=== PATIENT | female | born 1995 | race Caucasian/White ===

== ENCOUNTER 2024-05-03 05:24 | Inpatient (IN) ==
[2024-05-03] MEDS ORDERED: OXYTOCIN 30 UNITS/NSS 30 UNITS/500 ML BAG IV PRN ×2 (10:12→16:28)
[2024-05-03] MEDS ORDERED: LIDOCAINE 1% LOCAL 20 ML VIAL INFIL PRN (10:12)
--- NOTE | 2024-05-03 10:16 | History & Physical Report ---
Date of Service May 03, 2024 Assessment & Plan (1) Normal labor: Plan admit, labs, iv. fhts categ 1. plan arom after epidural. may need pit and pt and partner accepting of this. History of Present Illness Chief Complaint: labor Primary Care Provider: Yamilet Phillips MD 28yo at 40+wks brendan presents to LD with early labor. Patient notes ctx getting closer and stronger. She has had 2 cx exams at 2cm but was feeling more pain and requested recheck now. She is 4cm. No rom, vb. +FM PNC c/b 1. family history bicuspid valve, echo neg. PNL rh pos, ri, gbs neg OBH: g1 GYNH: nl paps no stds Allergies Allergy/AdvReac Type Severity Reaction Status Date / Time Sulfa (Sulfonamide Allergy Unknown rash Verified 05/02/24 19:58 Antibiotics) Home Medications Medication Instructions Recorded Confirmed Type vitamin-ferrous sulfate 1 tab PO DAILY 05/03/24 05/03/24 History 27 mg iron-folic acid 0.8 mg tablet Patient History Medical History (Updated 05/03/24 @ 10:18 by Janene Coe MD, FACOG) No pertinent past medical history Surgical History [place] teeth removed Family History (Updated 10/09/23 @ 10:17 by Rosita Hyde) Father , 56? yo Esophageal cancer Mother Diabetes Heart murmur Grandfather (Maternal) Diabetes Grandmother (Maternal) Diabetes Sister Gestational diabetes Denies family history of Ovarian cancer Prostate cancer Myocardial infarction Breast cancer Colorectal cancer Social History Smoking Status: Never smoker Second Hand Exposure: No; Do You Dip or Chew Tobacco: No; Hx Alcohol Use: Yes Alcohol type: beer, wine and hard liquor Alcohol Intake Frequency: 2-3 x/Week Hx Substance Use: No Preferred Language: Kinyarwanda Communication Ability: Effective Visual Impairment: No Limitations Hearing Ability: Normal Cottage Supervisor Required: No Beliefs That Will Affect Care: None marital status: marital status details: Marquise Ferrer (30) [phone] Current Living Situation: Spouse Current Living Situation Comment: lives with spouse, dogs current occupational status: employed current occupation: [employer] advisor Other Information That Helps Us Care for You: No Feels Safe at Home: Yes Safety Concerns: Feels Safe At This Time Childhood Exposure to Second-Hand Smoke: Yes Diet: regular caffeine: Yes during the past year weight has: remained stable Dental Care, Regularly: Yes Physical Activity Frequency: 1-2 Times per Week Seatbelt Use: always Sunscreen Use: Yes Assistive Devices: None Review of Systems as per Subjective / HPI Physical Exam Constitutional: WD/WN, vitals as above Respiratory: normal respiratory effort, lungs clear to auscultation Cardiovascular: Rate/Rhythm: regular rate and regular rhythm Gastrointestinal (Abdomen): soft gravid nt efw 7-8# Musculoskeletal: tr edema nontender calves Neurologic: grossly normal Psychiatric: A+Ox3, euthymic affect Genitourinary: Manual OB Exam: + cervical dilation 4 cm, + cervical effacement 80% and + station -2 OB Exam Monitor Tracing: + external FHT monitor used, + external uterine monitor used (q6min), + category I and + normal FHT variability Results & Data Vital Signs (Past 12 Hours) Vital Signs Temp Pulse Resp BP 05/03/24 09:59 75 113/67 05/03/24 07:03 72 117/73 05/03/24 05:43 98.2 F 18 05/03/24 05:40 85 120/77 Coding Level of Care Code None Diagnoses Normal labor O80; Z37.9
[2024-05-03] MEDS: LACTATED RINGER'S 1,000 ML IV PRN (10:30)
--- NOTE | 2024-05-03 10:33 | Anesthesiology Consultation ---
Date of Service May 03, 2024 Assessment & Plan (1) Encounter for pre-operative examination: Chart Review Chart Review: Acceptable Risk for Labor Epidural History Height/Weight Height: 5 ft 5 in Weight: 85.275 kg Allergies Allergy/AdvReac Type Severity Reaction Status Date / Time Sulfa (Sulfonamide Allergy Unknown rash Verified 05/02/24 19:58 Antibiotics) Medications Home Medications Medication Instructions Recorded Confirmed Last Taken vitamin-ferrous sulfate 1 tab PO DAILY 05/03/24 05/03/24 Unknown 27 mg iron-folic acid 0.8 mg tablet Active Medications Generic Name Dose Route Start Last Admin Trade Name Freq PRN Reason Stop Dose Admin Lactated Ringer's 1,000 mls @ 125 mls/hr 05/03/24 10:12 05/03/24 10:30 Lr IV 05/05/24 10:11 125 mls/hr .Q8H PRN Administration L&D Protocol Protocol Past Medical History Medical History No pertinent past medical history Past Family History Family History Father , 56? yo Esophageal cancer Mother Diabetes Heart murmur Grandfather (Maternal) Diabetes Grandmother (Maternal) Diabetes Sister Gestational diabetes Denies family history of Ovarian cancer Prostate cancer Myocardial infarction Breast cancer Colorectal cancer Past Surgical History Surgical History [place] teeth removed Social History Smoking Status: Never smoker Do You Dip or Chew Tobacco: No Hx Alcohol Use: Yes Alcohol type: beer, wine and hard liquor Hx Substance Use: No substance use type: marijuana Last Used Substance Other:: not used during Physical Exam Vital Signs Last Vital Signs Temp 36.8 C 05/03/24 05:43 Pulse 75 05/03/24 09:59 Resp 18 05/03/24 05:43 BP 113/67 05/03/24 09:59
[2024-05-03 10:54] LABS: Hematocrit (blood only) 32.5 % (37.0-47.0); Hemoglobin 11.9 g/dl (12.0-16.0); Mean Corpuscular Hemoglobin 31.4 pg (25.0-34.0); Mean Corpuscular Hgb Conc 36.6 g/dL (32.0-36.0); Mean Corpuscular Volume 85.8 fL (80.0-100.0); Mean Platelet Volume 13.2 fL (9.4-12.4); Platelet Count 134 K/uL (130-400); RDW Coefficient of Variation 12.6 % (11.5-14.5); Red Blood Count 3.79 M/uL (4.20-5.40); White Blood Count 13.37 K/ul (4.8-10.8)
[2024-05-03] MEDS: LIDOCAINE 2%/EPINEPHRINE 1:200,000 20 ML PF ONE (11:38)
[2024-05-03] MEDS: BUPIVACAINE 0.25% PF 30 ML VIAL ONE (11:38)
[2024-05-03] MEDS: fentaNYL citrate PF 100 MCG/2 ML VIAL ONE (11:38)
[2024-05-03] MEDS: fentANYL 2 MCG/ML BUPIVacaine 0.125%-NSS 100ML BAG ONE (11:39)
[2024-05-03] MEDS ORDERED: SODIUM CHLORIDE 0.9% PF INJ 10 ML VIAL EPI PRN (11:46)
[2024-05-03] MEDS ORDERED: fentANYL 2 MCG/ML BUPIVacaine 0.125%-NSS 100ML BAG EPI PRN (11:46)
[2024-05-03] MEDS ORDERED: NALOXONE HCL 1 MG in SODIUM CHLORIDE 0.9% 1,000 ML IV PRN (11:46)
[2024-05-03] MEDS ORDERED: fentaNYL citrate PF 100 MCG/2 ML VIAL EPI PRN (11:46)
[2024-05-03] MEDS ORDERED: SODIUM CHLORIDE 0.9% PF INJ 10 ML VIAL EPI STA (11:46)
[2024-05-03] MEDS ORDERED: LIDOCAINE 2%/EPINEPHRINE 1:200,000 20 ML PF EPI STA (11:46)
[2024-05-03] MEDS ORDERED: LIDOCAINE 2% MPF LOCAL 5 ML VIAL EPI PRN (11:46)
[2024-05-03] MEDS ORDERED: NALOXONE HCL 0.4 MG/1 ML VIAL/CARP IV PRN (11:46)
[2024-05-03] MEDS ORDERED: BUPIVACAINE 0.25% PF 30 ML VIAL EPI STA (11:46)
[2024-05-03] MEDS ORDERED: BUPIVACAINE 0.25% PF 30 ML VIAL EPI PRN (11:46)
[2024-05-03] MEDS ORDERED: fentaNYL citrate PF 100 MCG/2 ML VIAL EPI STA (11:46)
[2024-05-03] MEDS ORDERED: ePHEDrine sulfate 50 MG/ML AMP IV PRN (11:46)
[2024-05-03] MEDS ORDERED: ROPIVACAINE 0.5% PF 5 MG/ML 20 ML VIAL EPI PRN (11:46)
[2024-05-03] MEDS ORDERED: ONDANSETRON INJ 2 MG/ML 2 ML VIAL IV PRN (11:47)
--- NOTE | 2024-05-03 11:56 | Labor Progress Brief Note ---
Date of Service May 03, 2024 Subjective pt now comfortable. Assessment & Plan (1) Normal labor: (2) Irregular contractions: Plan start pitocin and see how arom helps pattern. fhts categ 1. Physical Exam Constitutional: WD/WN, vitals as above Genitourinary: Manual OB Exam: + cervical dilation (4), + cervical effacement (75%), + station -2 and + amniotic fluid (arom) clear OB Exam Monitor Tracing: + external FHT monitor used, + external uterine monitor used (q6), + category I and + normal FHT variability Results & Data Vital Signs (Past 12 Hours) Vital Signs Temp Pulse Resp BP Pulse Ox 05/03/24 11:49 98 H 106/57 L 05/03/24 11:48 103 H 98 05/03/24 11:46 90 102/55 L 05/03/24 11:43 99 H 112/57 L 98 05/03/24 11:40 78 114/59 L 05/03/24 11:38 90 97 05/03/24 11:37 81 113/57 L 05/03/24 11:34 82 122/61 05/03/24 11:33 100 H 97 05/03/24 11:31 89 120/63 05/03/24 11:29 104 H 93 05/03/24 11:28 90 131/76 98 05/03/24 11:24 103 H 93 05/03/24 11:23 84 98 05/03/24 11:19 79 109/59 L 05/03/24 11:18 73 98 05/03/24 09:59 75 113/67 05/03/24 07:03 72 117/73 05/03/24 05:43 98.2 F 18 05/03/24 05:40 85 120/77 Coding Level of Care Code None Diagnoses Normal labor O80; Z37.9 Irregular contractions O47.9
[2024-05-03] MEDS: OXYTOCIN 30 UNITS/NSS 30 UNITS/500 ML BAG IV PRN (12:02)
--- NOTE | 2024-05-03 14:10 | Labor Progress Brief Note ---
Date of Service May 03, 2024 Subjective comfortable Assessment & Plan (1) Normal labor: (2) Irregular contractions: Plan good cx change. fhts categ 1. c/w pit. currently at 7. Admission and Anticipated Discharge Date Admission Date: May 03, 2024 Physical Exam Constitutional: WD/WN, vitals as above Genitourinary: Manual OB Exam: + cervical dilation (thick right ant lip) 8 cm, + cervical effacement 100% and + station 0 OB Exam Monitor Tracing: + external FHT monitor used, + external uterine monitor used (q2), + category I and + normal FHT variability Results & Data Vital Signs (Past 12 Hours) Vital Signs Temp Pulse Resp BP Pulse Ox 05/03/24 14:04 60 119/76 05/03/24 14:03 61 94 05/03/24 14:02 59 L 94 05/03/24 13:58 60 97 05/03/24 13:53 59 L 98 05/03/24 13:49 57 L 123/80 05/03/24 13:48 58 L 96 05/03/24 13:43 57 L 96 05/03/24 13:38 59 L 97 05/03/24 13:34 59 L 113/77 05/03/24 13:33 62 98 05/03/24 13:30 62 94 05/03/24 13:28 61 96 05/03/24 13:23 70 95 05/03/24 13:19 67 109/66 05/03/24 13:18 60 94 05/03/24 13:16 60 94 05/03/24 13:13 60 94 05/03/24 13:10 63 93 05/03/24 13:08 62 94 05/03/24 13:05 94 05/03/24 13:05 60 05/03/24 13:05 58 L 112/62 05/03/24 13:03 60 97 05/03/24 13:00 18 05/03/24 13:00 97.9 F 18 05/03/24 12:58 59 L 97 05/03/24 12:57 59 L 93 05/03/24 12:53 64 94 05/03/24 12:50 60 94 05/03/24 12:49 61 107/62 05/03/24 12:48 60 97 05/03/24 12:43 95 05/03/24 12:43 64 05/03/24 12:43 65 93 05/03/24 12:38 62 99 05/03/24 12:33 63 97 05/03/24 12:31 62 95/65 L 94 05/03/24 12:28 64 106/63 98 05/03/24 12:25 60 101/57 L 05/03/24 12:23 62 98 05/03/24 12:22 66 100/57 L 93 05/03/24 12:19 63 102/61 05/03/24 12:18 64 99 05/03/24 12:16 67 101/56 L 05/03/24 12:13 96 05/03/24 12:13 67 05/03/24 12:13 65 97/53 L 05/03/24 12:11 65 97/52 L 05/03/24 12:10 62 72/47 L 05/03/24 12:08 83 100 05/03/24 12:07 86 84/50 L 05/03/24 12:05 76 108/53 L 05/03/24 12:04 88 94 05/03/24 12:03 77 98 05/03/24 12:01 75 106/59 L 05/03/24 12:00 18 05/03/24 12:00 18 05/03/24 11:58 86 106/56 L 98 05/03/24 11:55 80 111/56 L 05/03/24 11:53 104 H 94 05/03/24 11:52 93 H 110/58 L 05/03/24 11:49 98 H 106/57 L 05/03/24 11:48 103 H 98 05/03/24 11:46 90 102/55 L 05/03/24 11:43 99 H 112/57 L 98 05/03/24 11:40 78 114/59 L 05/03/24 11:38 90 97 05/03/24 11:37 81 113/57 L 05/03/24 11:34 82 122/61 05/03/24 11:33 100 H 97 05/03/24 11:31 89 120/63 05/03/24 11:29 104 H 93 05/03/24 11:28 90 131/76 98 05/03/24 11:24 103 H 93 05/03/24 11:23 84 98 05/03/24 11:19 79 109/59 L 05/03/24 11:18 73 98 05/03/24 09:59 75 113/67 05/03/24 07:03 72 117/73 05/03/24 05:43 98.2 F 18 05/03/24 05:40 85 120/77 Coding Level of Care Code None Diagnoses Normal labor O80; Z37.9 Irregular contractions O47.9
--- NOTE | 2024-05-03 16:03 | Delivery Summary ---
Vaginal Delivery Summary Date of Service May 03, 2024 Vaginal Delivery Summary and 2nd Degree LAC Spontaneous vaginal delivery the patient arrived in active labor progressed to 4 cm received an epidural and then rupture of membranes after reaching fully dilated she pushed for only a few contractions delivering baby in occiput anterior position after delivery of the head fluid was clear there was a tight nuchal cord which had to be clamped and cut after this I was able to then deliver the rest the baby with gentle traction no excessive efforts live vigorous male infant cord gases not obtained cord blood was obtained placenta removed with gentle traction IV Pitocin started uterine tone improved Small second-degree tear repaired with 3-0 Vicryl sponge and instrument counts correct QBL 110ml [facility] Vaginal Delivery Charge Delivery Type Details: and 2nd Degree LAC
[2024-05-03] MEDS ORDERED: ACETAMINOPHEN 325 MG TAB PO PRN (16:28)
[2024-05-03] MEDS ORDERED: oxyCODONE/ACETAMINOPHEN 5mg/325mg TAB PO PRN (16:28)
[2024-05-03] MEDS ORDERED: HYDROCORTISONE ACETATE 25 MG SUPP PR PRN (16:28)
[2024-05-03] MEDS: ePHEDrine sulfate 50 MG/ML AMP ONE (17:29)
[2024-05-03] MEDS: SODIUM CHLORIDE 0.9% PF INJ 10 ML VIAL ONE (17:29)
--- NOTE | 2024-05-03 17:54 | Anesthesia Procedure Note ---
Date of Service May 03, 2024 Anesthesia Post Epidural Note Vital Signs Vital Signs: Temp Pulse Resp BP Pulse Ox 97.9 F 73 18 98/53 L 97 05/03/24 13:00 05/03/24 17:49 05/03/24 15:30 05/03/24 17:49 05/03/24 16:03 Pain Intensity Back: Pain Intensity: 0 Notes Mental Status: alert / awake / arousable and participated in evaluation Nausea / Vomiting: adequately controlled Pain: adequately controlled Airway Patency, RR, SpO2: stable & adequate BP & HR: stable & adequate Hydration State: stable & adequate Neuraxial Anesthesia: was administered and sensory block is resolving Anesthetic Complications: no major complications apparent and Pt Satisfied with anesthetic care Epidural: Removed without complications and With tip intact
[2024-05-03] MEDS: OXYTOCIN 20 UNITS/LR 1,002 ML IV SCH (18:39)
[2024-05-03] MEDS: IBUPROFEN 600 MG TAB PO PRN (18:43)
[2024-05-03] MEDS: DOCUSATE SODIUM 100 MG CAP PO SCH (23:40)
--- NOTE | 2024-05-04 06:54 | Obstetrical Progress Note ---
Date of Service May 04, 2024 Assessment & Plan (1) care and examination: Plan doing well, cont current care. breast feeding, rhpos, ri Day #:: 1 Subjective Ambulation: ambulating normally Voiding: no voiding problems Diet Tolerance:: regular diet Lochia:: Small Feeding Type:: breast feeding no concerns Constitutional: + as per Subjective / HPI Physical Exam Constitutional WD/WN, vitals as above Respiratory normal respiratory effort, lungs clear to auscultation Cardiovascular Rate/Rhythm: regular rate and regular rhythm Gastrointestinal (Abdomen) Inspection/Auscultation: abdomen normal to inspection Percussion/Palpation: abdomen soft Fundus firm 2cm down Musculoskeletal nt calves no edema Neurologic grossly normal Psychiatric A+Ox3, euthymic affect Results & Data Vital Signs (Past 12 Hours) Vital Signs Temp Pulse Resp BP O2 Del Method 05/04/24 04:21 98.1 F 79 14 102/68 Room Air 05/04/24 00:07 98.1 F 60 14 109/71 Room Air 05/03/24 19:45 98.6 F 68 16 106/69 Room Air
[2024-05-04] MEDS: BENZOCAINE 20% SPRY 85 APPLN/85 GM CAN EXT PRN (08:26)
[2024-05-04] MEDS: PRENATAL VITAMIN 1 TAB PO SCH (08:26)
[2024-05-04] MEDS: DIPHTHER/TETAN/PERTUS Vaccine (Tdap, Adol/Adult) 0.5mL IM ONE (15:20)
[2024-05-04] MEDS: bisacodyL 5 MG TABEC PO SCH (19:54)
[2024-05-04 23:58] VITALS: RESP 16
[2024-05-05 07:51] VITALS: BP 113/74; PULSE 56; TEMP 98.2; O2SAT 97
--- NOTE | 2024-05-05 08:40 | Obstetrical Progress Note ---
Date of Service May 05, 2024 Assessment & Plan (1) care and examination: ppd 2 doing well, no ext pain, no depression home Subjective Ambulation: ambulating normally Voiding: no voiding problems Passing Gas:: Yes Diet Tolerance:: regular diet Lochia:: Small Feeding Type:: breast feeding Physical Exam Constitutional WD/WN, vitals as above well developed and well nourished Respiratory normal respiratory effort, lungs clear to auscultation normal respiratory effort Cardiovascular RRR, no murmur, no edema Gastrointestinal (Abdomen) normal bowel sounds, soft, nontender, no hepatosplenomegaly Results & Data Vital Signs (Past 12 Hours) Vital Signs Temp Pulse Pulse Resp BP Pulse Ox O2 Del Method 05/05/24 07:35 98.2 F 56 L 16 113/74 97 Room Air 05/04/24 23:20 97.7 F 54 L 16 120/81 Room Air
== END 2024-05-05 10:31 | disposition home or self-care (01) | DRG 806 ==
LOC: OPB 05:24 → 4S1 05:29 → 4E2 18:20